=== PATIENT | female | born 1950 | race Asian ===

== ENCOUNTER 2021-11-10 14:09 | Inpatient (IN) | payer MEDICARE, OTHER ==
[~2021-11-10] VITALS: Ht 152.4 cm; Wt 40.8 kg
[2021-11-10] MEDS ORDERED: HYDROCODONE/APAP 5MG-325MG TAB PO ONE (15:45)
[2021-11-10 17:22] LABS: BASOPHILS % 0.2 % (0.0-1.0); EOSINOPHILS % 0.1 % (0.0-6.0); HEMATOCRIT 36.3 % (34.2-44.1); HEMOGLOBIN 12.1 g/dL (12.0-16.0); LYMPHOCYTES # (AUTO) 0.8 (1.0-3.2); LYMPHOCYTES % 6.7 % (18.0-39.1); MEAN CORPUSCULAR HEMOGLOBIN 29.8 pg (28-32); MEAN CORPUSCULAR HGB CONC 33.3 g/dL (31-35); MEAN CORPUSCULAR VOLUME 89.4 fL (81-99); MONOCYTES # (AUTO) 0.9 (0.2-0.8); NEUTROPHILS # (AUTO) 9.6 (2.1-6.9); NEUTROPHILS % 84.7 % (38.7-80.0); PLATELET COUNT 204 x10e3/uL (140-360); RED BLOOD COUNT 4.06 x10e6/uL (3.6-5.1); RED CELL DISTRIBUTION WIDTH 12.6 % (11.7-14.4)
[2021-11-10 17:43] LABS: ALBUMIN 3.4 g/dL (3.5-5.0); ALBUMIN/GLOBULIN RATIO 0.8 (0.8-2.0); ANION GAP 15.9 mmol/L (8-16); CALCIUM 8.9 mg/dL (8.4-10.2); CREATININE, SERUM 1.39 mg/dL (0.57-1.11); POTASSIUM 3.9 mmol/L (3.5-5.1)
[2021-11-10] MEDS ORDERED: HYDROCODONE/APAP 5MG-325MG TAB PO PRN (18:00)
[2021-11-10] MEDS ORDERED: ONDANSETRON HCL INJ 2MG/ML 2ML 2 MG/ML VIAL IV PRN (18:00)
[2021-11-10] MEDS: Morphine 2mg Syringe 2 MG/ML SYR IV PRN ×2 (19:33→22:55)
[2021-11-10 19:41] VITALS: BP 129/63
[2021-11-10 19:45] VITALS: BP 129/63
[2021-11-10] MEDS ORDERED: AMLODIPINE BESY10 MG PO (20:18)
[2021-11-10] MEDS ORDERED: METHADONE HCL10 MG (20:18)
[2021-11-10] MEDS ORDERED: TIZANIDINE HCL4 MG (20:18)
[2021-11-10] MEDS ORDERED: LISINOPRIL-HCT1 EAC1 (20:18)
[2021-11-10 21:07] VITALS: BP 129/63
[2021-11-10 23:48] VITALS: BP 127/62
[2021-11-11] MEDS: Morphine 2mg Syringe 2 MG/ML SYR IV PRN (04:11)
[2021-11-11 05:03] VITALS: BP 148/67
[2021-11-11 08:10] VITALS: BP 128/64
[2021-11-11 08:15] VITALS: BP 128/64
[2021-11-11] MEDS: INSULIN LISPRO 100 UNIT/1 ML 3ML VIAL SQ SCH ×2 (11:30→16:30)
[2021-11-11] MEDS ORDERED: DEXTROSE 50% SYRINGE 50 ML IV PRN (11:30)
[2021-11-11 11:36] VITALS: BP 118/66
[2021-11-11 15:36] VITALS: BP 128/64
[2021-11-11] MEDS ORDERED: HYDROCODON-ACE1 EA11 PO (18:54)
[2021-11-11] MEDS ORDERED: ONDANSETRON HCL 4 MG ORAL DISINTEGRATING TAB PO PRN (19:15)
== END 2021-11-11 19:13 | disposition home or self-care (01) | DRG 184 ==
LOC: ER 15:42 → ERHOLD 17:56 → MED/SURG3 19:44
PROVIDERS: ADMIT Internal Medicine; ATTEND Internal Medicine
DX: S22.42XA Multiple fractures of ribs, left side, initial encounter for closed fracture (principal); S27.321A Contusion of lung, unilateral, initial encounter; Z68.1 Body mass index [BMI] 19.9 or less, adult; W18.2XXA Fall in (into) shower or empty bathtub, initial encounter; Y93.E1 Activity, personal bathing and showering; Y92.012 Bathroom of single-family (private) house as the place of occurrence of the external cause; E11.9 Type 2 diabetes mellitus without complications; J44.9 Chronic obstructive pulmonary disease, unspecified; Z20.822 Contact with and (suspected) exposure to COVID-19; R63.6 Underweight
CPT/HCPCS: 36415; 70450; 71101; 71250; 72125; 80053; 82948; 85025; 94799; 99284; J2270; J2405; U0002